=== PATIENT | female | born 1970 | race Caucasian/White ===

== ENCOUNTER 2019-12-15 09:48 | Outpatient (CLI) | payer OTHER, SELFPAY ==
--- NOTE | ~2019-12-15 | MM_ITS ---
EXAMINATION: MM screening [facility] BI w abida HISTORY: Screening mammogram TECHNIQUE: Craniocaudal and mediolateral oblique 3-D tomosynthesis images were obtained and synthetic 2-D images were generated. CAD analysis was submitted and interpreted. COMPARISON: , 10/16/2017, 08/20/2016 bilateral digital screening mammogram examinations BREAST PARENCHYMAL COMPOSITION: . FINDINGS: There is no evidence of suspicious mass, calcification, or architectural distortion to sugg est malignancy in either breast. There has been no suspicious interval change. IMPRESSION: 1. No mammographic evidence of malignancy. 2. Recommend routine screening mammography in one year. BI-RADS Category 1: Negative Reviewed, dictated and finalized at location A.
== END 2019-12-15 09:49 | disposition home or self-care (01) ==
LOC: ANHIMG 09:51
PROVIDERS: PCP Internal Medicine; Visit Provider Obstetrics & Gynecology
DX: Z12.31 Encounter for screening mammogram for malignant neoplasm of breast (principal)
CPT/HCPCS: 77063; 77067

== ENCOUNTER 2020-12-15 10:36 | Outpatient (CLI) | payer BC, SELFPAY ==
--- NOTE | ~2020-12-15 | MM_ITS ---
EXAMINATION: MM screening [facility] BI w abida HISTORY: Screening mammogram TECHNIQUE: Craniocaudal and mediolateral oblique 3-D tomosynthesis images were obtained and synthetic 2-D images were generated. CAD analysis was submitted and interpreted. COMPARISON: 12/15/2019, 10/21/2018, 10/16/2017 BREAST PARENCHYMAL COMPOSITION: The breasts are heterogeneously dense, which may obscure small masses . FINDINGS: There is no evidence of suspicious mass, calcification, or architectural distortion to sugg est malignancy in either breast. There has been no suspicious interval change. IMPRESSION: 1. No mammographic evidence of malignancy. 2. Recommend routine screening mammography in one year. BI-RADS Category 1: Negative Reviewed, dictated and finalized at location A.
== END 2020-12-15 10:37 | disposition home or self-care (01) ==
LOC: ANHIMG 10:39
PROVIDERS: PCP Internal Medicine; Visit Provider Obstetrics & Gynecology
DX: Z12.31 Encounter for screening mammogram for malignant neoplasm of breast (principal)
CPT/HCPCS: 77063; 77067

== ENCOUNTER 2021-12-17 14:15 | Outpatient (CLI) | payer BC, SELFPAY ==
--- NOTE | ~2021-12-17 | MM_ITS ---
EXAMINATION: MM screening [facility]io BI w abida HISTORY: Screening TECHNIQUE: Craniocaudal and mediolateral oblique 3-D tomosynthesis images were obtained and synthetic 2-D images were generated. CAD analysis was submitted and interpreted. COMPARISON: Comparison to multiple prior studies sequentially, with oldest reviewed study dated 07/26. BREAST PARENCHYMAL COMPOSITION: Breast composed of scattered areas of fibroglandular density FINDINGS: There is no evidence of suspicious mass, calcification, or architectural distortion to sugg est malignancy in either breast. There has been no suspicious interval change. IMPRESSION: 1. No mammographic evidence of malignancy. 2. Recommend routine screening mammography in one year. BI-RADS Category 1: Negative Reviewed, dictated and finalized at location A.
== END 2021-12-17 14:16 | disposition home or self-care (01) ==
LOC: ANHIMG 14:16
PROVIDERS: PCP Internal Medicine; Visit Provider Obstetrics & Gynecology
DX: Z12.31 Encounter for screening mammogram for malignant neoplasm of breast (principal)
CPT/HCPCS: 77063; 77067

== ENCOUNTER 2023-01-02 15:58 | Outpatient (CLI) | payer BC, SELFPAY ==
--- NOTE | ~2023-01-02 | MM_ITS ---
EXAMINATION: MM screening [facility] BI w abida HISTORY: Screening mammogram TECHNIQUE: Craniocaudal and mediolateral oblique 3-D tomosynthesis images were obtained and synthetic 2-D images were generated. CAD analysis was submitted and interpreted. COMPARISON: 12/17/2021, 12/15/2020, 12/15/2019 BREAST PARENCHYMAL COMPOSITION:The breasts are heterogeneously dense, which may obscure small masses. FINDINGS: No suspicious mass, calcification, or architectural distortion are identified in either rajinder ast to suggest malignancy. There has been no suspicious interval change. IMPRESSION: No mammographic evidence of malignancy. Recommend routine screening mammography in one year. BI-RADS Category 1: Negative Reviewed, dictated and finalized at location .
== END 2023-01-02 15:59 | disposition home or self-care (01) ==
LOC: ANHIMG 16:00
PROVIDERS: PCP Registered Nurse; Visit Provider Obstetrics & Gynecology
DX: Z12.31 Encounter for screening mammogram for malignant neoplasm of breast (principal)
CPT/HCPCS: 77063; 77067

== ENCOUNTER 2024-01-23 07:31 | Outpatient (CLI) | payer BC, SELFPAY ==
--- NOTE | ~2024-01-23 | MM_ITS ---
EXAMINATION: MM screening [facility] BI w abida HISTORY: Screening TECHNIQUE: Craniocaudal and mediolateral oblique 3-D tomosynthesis images were obtained and synthetic 2-D images were generated. CAD analysis was submitted and interpreted. COMPARISON: Comparison to multiple prior studies sequentially, with oldest reviewed study dated 10/16. BREAST PARENCHYMAL COMPOSITION: Not dense: There are scattered areas of fibroglandular density. FINDINGS: There is no evidence of suspicious mass, calcification, or architectural distortion to sugg est malignancy in either breast. There has been no suspicious interval change. IMPRESSION: 1. No mammographic evidence of malignancy. 2. Recommend routine screening mammography in one year. BI-RADS Category 1: Negative Reviewed, dictated and finalized at location B.
== END 2024-01-23 07:32 | disposition home or self-care (01) ==
LOC: ANHIMG 07:34
PROVIDERS: PCP Registered Nurse; Visit Provider Obstetrics & Gynecology
DX: Z12.31 Encounter for screening mammogram for malignant neoplasm of breast (principal)
CPT/HCPCS: 77063; 77067

== ENCOUNTER 2025-02-10 08:10 | Outpatient (CLI) | payer BC, SELFPAY ==
--- NOTE | ~2025-02-10 | MM_ITS ---
EXAMINATION: MM screening [facility] BI w abida HISTORY: Screening TECHNIQUE: Craniocaudal and mediolateral oblique 3-D tomosynthesis images were obtained and synthetic 2-D images were generated. CAD analysis was submitted and interpreted. COMPARISON: Comparison to multiple prior studies sequentially, with oldest reviewed study dated 10/21. BREAST PARENCHYMAL COMPOSITION: Not dense: There are scattered areas of fibroglandular density. FINDINGS: There is no evidence of suspicious mass, calcification, or architectural distortion to sugg est malignancy in either breast. There has been no suspicious interval change. IMPRESSION: 1. No mammographic evidence of malignancy. 2. Recommend routine screening mammography in one year. BI-RADS Category 1: Negative Reviewed, dictated and finalized at location A.
--- OUTSIDE RECORDS SUMMARY | 2025-02-10 08:16 | XMS_ITS | Referral Summary ---
Author Organization [facility] Address [address] [place] [address] Care Team Providers Care Arborist Climber Name Role Phone Jamie Reis MD Primary Care Provider [phone] Amrik Holbrook MD Unavailable [phone] Encounters Date Type Department Care Team Description 01/12/2025 Results Follow-Up [facility] Medical [facility] Obstetrical Gynecology [facility] [address] [place] [address] Daljit Santa MD Pap and High Risk HPV and Genotyping (Cytology Component) 01/04/2025 2:38 PM CDT - 01/04/2025 11:59 PM CDT Hospital Encounter [facility] Lab [facility] [place] [address] Well woman exam Discharge Disposition: Discharge to home or self care 01/04/2025 1:30 PM CDT Office Visit [facility] Obstetrical Gynecology [facility] [address] [place] [address] Daljit Santa MD Well woman exam (Primary Dx); Left lower quadrant pain; Menopausal symptoms; Encounter for screening mammogram for malignant neoplasm of breast from Last 3 Months Allergies Active Allergy Reactions Criticality Noted Date Comments Prednisone Stomach upset Low 09/23/2013 Stomach/GI Upset Medications DULoxetine DR (CYMBALTA) 60 mg capsule 04/04/2018 Active olmesartan (BENICAR) 20 mg tablet Take 1 tablet (20 mg total) by mouth daily 08/02/2021 Active Active Problems Problem Noted Date Diagnosed Date Neck pain 08/07/2017 Carpal tunnel syndrome 05/21/2016 Social History Tobacco Use Types Packs/Day Years Used Date Smoking Tobacco: Never Tobacco Cessation:Counseling Given: Not Answered Alcohol Use Standard Drinks/Week Comments Yes 0 (1 standard drink = 0.6 oz pur e alcohol) Comments No Sex and Gender Information Value Date Recorded Sex Assigned at Not on file 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 Gender Identity Female 06/10/2018 12:33 PM CDT Sexual Orientation Not on file Last Filed Vital Signs Vital Sign Reading Time Taken Comments Blood Pressure 118/72 12/08/2023 10:14 AM CDT Pulse - - Temperature - - Respiratory Rate - - Oxygen Saturation - - Inhaled Oxygen Concentration - - Weight 109.9 kg (242 lb 3.2 oz) 01/04/2025 1:33 PM CDT Height 162.6 cm (5' 4) 01/04/2025 1:33 PM CDT Body Mass Index 41.57 01/04/2025 1:33 PM CDT Plan of Treatment Not on file Procedures Procedure Name Priority Date/Time Associated Diagnosis Comments PAP AND HIGH RISK HPV, REFLEX TO GENOTYPING Routine 01/04/2025 2:02 PM CDT Well woman exam HIGH RISK HPV DNA DETECTION WITH GENOTYPING Routine 01/04/2025 2:02 PM CDT Well woman exam from Last 3 Months Results * High Risk HPV DNA Detection with Genotyping (Molecular component) (01/04/2025 2:02 PM CDT) HPV HR 16 Not Detected Not Detected [facility] Comment:Testing performed by : [facility], [address] [facility] [place]., [address] HPV HR 18 Not Detected Not Detected KIM NATARAJAN Comment:Testing performed by : [facility], [address] [place]., [address] HPV HR Non 16/18 Not Detected Not Detected [facility]ARAJ[facility] Comment: Interpretive Data Nucleic acid amplification for detection of high-risk Human Papilloma virus (HPV) is performed by the Rodriguez Mariluz 6800 HPV test. This assay specifically detects HPV-16 and HPV-18 genotypes. The following HPV genotypes are detected as high-risk HPV: HPV-31, 33, 35, ,39, 45, 51, 52, 56, 58, 59, 66, and 68. This assay has been approved by the [place] Food and Drug Administration for detection of HPV in cervical specimens collected by a physician using an endocervical brush/spatula or cervical broom and placed in the ThinPrep Pap Test PreservCyt collection containers. The performance characteristics of this test have been verified by the [facility] Molecular Infectious Disease laboratory. Correlate with separately reported cytology results, as applicable. Interpretive data last revised 23 Testing performed by: [facility], [address] [place]., [address] Endocervical 01/04/2025 2:02 PM CDT 01/06/2025 11:09 AM CDT Narrative [facility] - 01/06/2025 9:14 PM CDT Clinical history and diagnosis->screen Number of vials->1 Testing type->Screening Last menstrual period (date if known)->12/16/24 Daljit Santa MD LAB BODY FLUIDS AND STO OLS ORDERABLES Final Result [facility] [address] [facility] Department [place] [address] [facility] * Pap and High Risk HPV and Genotyping (Cytology Component) (01/04/2025 2:02 PM CDT) Thin prep (Pap test) 01/04/2025 2:02 PM CDT 01/05/2025 8:39 PM CDT Narrative [facility] - 01/12/2025 9:58 AM CDT EPIC results best viewed via link to PDF [facility] [place] [address] [place] [address] Note to Patients: This report may contain a detailed description of human tissue sent by a health care provider to the laboratory for pathologic evaluation. The content of this report is essential for diagnosis and may provide important critical findings. This information may be unfamiliar to patients to review without a medical professional present. It is advised that the patient review this report in the presence of a health care provider who can answer questions and explain the details. CYTOPATHOLOGY REPORT FINAL Patient Name: GLADIS SAMUEL Gender: F : 1970 (Age: 54) Address: [address] [place] [id number] [facility] #: [id number] Service: UNKNOWN Location: Patient Type: [facility] SPECIMEN Taken: 01/04/2025 Received: 01/05/2025 Accessioned: 01/06/2025 Reported: 01/12/2025 Physician(s): Daljit Santa M.D. FINAL INTERPRETATION SOURCE OF SPECIMEN Liquid based Thin Prep pap with HPV: STATEMENT OF ADEQUACY - Satisfactory for evaluation - Endocervical cells/transformation zone sample absent GENERAL CATEGORIZATION: - Negative for squamous intraepithelial lesion or malignancy Comments (Normal-Negative for High Risk HPV) HPV HR 16- Not detected HPV HR 18-Not detected HPV HR non 16/18- Not detected Interpretive Data Nucleic acid amplification for detection of high-risk Human Papilloma virus (HPV) is performed by the Rodriguez Mariluz 6800 HPV test. This assay specifically detects HPV- 16 and HPV-18 genotypes. The following HPV genotypes are detected as high-risk HPV: HPV-31, 33, 35, 39, 45, 51, 52, 56, 58, 59, 66, and 68. This assay has been approved by the [place] Food and Drug Administration for detection of HPV in cervical specimens collected by a physician using an endocervical brush/spatula or cervical broom and placed in the ThinPrep Pap Test PreservCyt collection containers. The performance characteristics of this test have been verified by the [facility] Molecular Infectious Disease laboratory. Correlate with reported cytology results, as applicable. Interpretive data last revised 23 swetha/01/12/2025 09:58 AIDAN Barron(ASCP) Report Electronically Reviewed and Signed Out By AIDAN Barron(ASCP) 01/12/2025 09:58:42 Cervicovaginal Cytology (Pap Test) Disclaimer: The Pap test is a screening test used to detect cervical cancer and its precursors; it is not a diagnostic procedure. False negative and false positive results do occur. Pap test results should be interpreted in the context of pertinent clinical information and biopsy results as indicated. [facility] Clinical Laboratory Improvement Amendments (CLIA) mandate that cytologic and histologic results be correlated for laboratory air quality manager & improvement standards. FOR ALL HIGH-GRADE CASES we request submission of follow-up histological material and/or reports that have not been previously provided so that we may fulfill said required standards. Gross Description A. Liquid based Thin Prep pap with HPV: Cervical/vaginal - Screening ThinPrep Clinical Diagnosis and History Last Menstrual Period: 12/16/24 The patient is a 54 year old female with screen. Report Images and scanned documents, if included only viewable in PDF version The performance characteristics of some immunohistochemical stains, in-situ hybridization and fluorescence in-situ hybridization tests and immunophenotyping by flow cytometry cited in this report (if any) were determined by the Surgical Pathology Department at [facility] as part of an ongoing quality compliance consultant program and in compliance with federally mandated regulations drawn from the Clinical Laboratory Improvement Act of 1988 (CLIA '88). Some of these tests rely on the use of analyte specific reagents and are subject to specific labeling requirements by the [place] Food and Drug Administration. Such diagnostic tests may only be performed in a facility that is certified by the Department of Health and Human Services as a high complexity laboratory under CLIA '88. The FDA has determined that such clearance or approval is not necessary. This test is used for clinical purposes. It should not be regarded as investigational or for research. Nevertheless, federal rules concerning the medical use of analyte specific reagents require that the following disclaimer be attached to the report: This test was developed and its performance characteristics determined by the Surgical Pathology Department of [facility]. It has not been cleared or approved by the U. S. Food and Drug Administration. Daljit Santa MD LAB CYTOLOGY ORDERABLES Final Result [facility] from Last 3 Months Insurance [facility] CHOICE [facility] HMO/PPO Address: [address] [address] [place] [address] CHOICE [place]F [place] Care Teams Arborist Climber Relationship Specialty Start Date End Date Jamie Reis MD [address] [place] [id number] PCP - General 07/22/17 Amrik Holbrook MD [address] [facility] [address] [place] [address] Surgeon Orthopedic Surgery 04/08/18
--- OUTSIDE RECORDS SUMMARY | 2025-02-10 08:16 | XMS_ITS | Encounter Summary ---
Author Organization [facility] Address [address] [place] [address] [place] [address] Care Team Providers Care Safety And Security Officer Name Role Phone Unavailable Primary Care Provider Unavailabl e Encounter Details Date Type Department Care Team (Late st Contact Info) Description 07/05/2024 Lab Requisition [facility] - DermPath Lab [address] [facility] [place] [phone] Veronica Hughes DO [address] [facility] [address] [place] [address] Social History Tobacco Use Types Packs/Day Years Used Date Smoking Tobacco: Never Assessed Comments Unknown Sex and Gender Information Value Date Recorded Sex Assigned at Not on file 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 Gender Identity Not on file Sexual Orientation Not on file documented as of this encounter Plan of Treatment Not on file documented as of this encounter Procedures Procedure Name Priority Date/Time Associated Diagnosis Comments DERMATOPATHOLOGY Routine 07/05/2024 2:45 PM SUPERVISOR SALVAGE documented in this encounter Results * DERMATOPATHOLOGY (07/05/2024 2:45 PM SUPERVISOR SALVAGE) Case Report Dermatopathology Report Case: [id number] Authorizing Provider: Veronica Hughes DO Collected: 07/05/2024 02:45 PM Ordering Location: [facility] - Received: 07/06/2024 02:29 PM DermPath Lab Pathologist: Yana Powers MD Specimen: Skin, mid back 4 3:07 PM [employer] DERMATOPATHOLOGY LABORATORY Final Diagnosis Specimen A. 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 The specimen consists of a shave biopsy measuring 7x6x1 mm. Jar 0. 4 3:07 PM [facility] DERMATOPATHOLOGY LABORATORY Microscopic Description Specimen A. SKIN, mid back: This is a compound nevus. There is a lentiginous proliferation of melanocytes between nevus nests of cells along the dermal-epidermal junction. There is underlying lamellar fibroplasia of the papillary dermis. The intradermal component is bland in appearance and matures with depth. (Compound Brian's Nevus) 4 3:07 PM [facility] DERMATOPATHOLOGY LABORATORY Disclaimer An external and internal positive and negative controls are appropriate for the histochemical, immunohistochemical and immunofluorescence stain(s) in this case (if any), except where stated explicitly. The performance characteristics of the stain(s) cited in this report were developed and its performance characteristic determined by the Dermatopathology Laboratory at [facility], directed by Dr. Mike Clarke. These tests need not be, and therefore are not, approved by the [place] Food and Drug Administration. The tests are used for clinical purposes. Billing Codes Specimen Charges Stain Charges 58451 1 4 3:07 PM [facility] DERMATOPATHOLOGY [facility]ORATORY Embedded Images 4 3:07 PM [facility] DERMATOPATHOLOGY LABORATORY Pathology/Cytolo gy TISSUE SPECIMEN FROM SKIN / Unknown 07/05/2024 2:45 PM SUPERVISOR SALVAGE 07/06/2024 2:29 PM SUPERVISOR SALVAGE us Veronica Hughes DO LAB - PATHOLOGY/CYTOLOGY ORDERABLES Final Result DERMATOPATHOLOGY LABORATORY [facility] - Department of Dermatology [address] [place] [address], [facility] [phone] documented in this encounter Visit Diagnoses Not on filedocumented in this encounter
--- OUTSIDE RECORDS SUMMARY | 2025-02-10 08:16 | XMS_ITS | Encounter Summary ---
Author Organization [facility] Address [address] [place] [address] Care Team Providers Care Chief Nurse Anesthetist Name Role Phone Jamie Reis MD Primary Care Provider [phone] Amrik Holbrook MD Unavailable [phone] Encounter Details Date Type Department Care Team (Late st Contact Info) Description 01/12/2025 Results Follow-Up [facility] Medical Group Obstetrical Gynecology [address] [facility] [address] [place] [phone] Daljit Santa MD [address] [place] [address] Pap and High Risk HPV and Genotyping (Cytology Component) Social History Tobacco Use Types Packs/Day Years Used Date Smoking Tobacco: Never Alcohol Use Standard Drinks/Week Comments Yes 0 (1 standard drink = 0.6 oz pur e alcohol) Comments No Sex and Gender Information Value Date Recorded Sex Assigned at Not on file 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 Your Pap smear is normal. documented in this encounter Plan of Treatment Not on file documented as of this encounter Visit Diagnoses Not on filedocumented in this encounter Care Teams Chief Nurse Anesthetist Relationship Specialty Start Date End Date Jamie Reis MD [address] [place] [address] PCP - General 07/22/17 Amrik Holbrook MD [address] [facility] [address] [place] [address] Surgeon Orthopedic Surgery 04/08/18 documented as of this encounter
--- OUTSIDE RECORDS SUMMARY | 2025-02-10 08:16 | XMS_ITS | Clinical Summary ---
Author Organization [facility] [employer] Address [address] [place] [address] [place] [address] Care Team Providers Care Saxophone Player Name Role Phone Unavailable Primary Care Provider Unavailabl e Source Comments [facility],non-owned Affiliates and Associated Physician Practices is amultiple site organization consisting of ambulatory clinics and hospital sitesin [place], [place], [place] and [place]. This disclosure is being madepursuant to the Care Everywhere program and may not contain all information available regarding this patient. 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 Gender Identity Not on file Sexual Orientation Not on file Plan of Treatment Health Maintenance Due Date Last Done Comments COLOGUARD (AGES 45-75) - COL ON CA SCREENING 1970 COLON MONITORING 1970 COLONOSCOPY - COLON CA SCREENING 1969 CT COLONOGRAPHY - COLON CA SCREENING 1970 Colorectal Cancer Screening 1970 FIT - COLON CA SCREENING 1970 FLEX SIG - COLON CA SCREENING 1970 LIPID TESTING 1970 MAMMOGRAM 1970 HIV SCREENING 1984 HEPATITIS C SCREENING 03/21/1987 DTAP/TDAP/TD VACCINES (1 - Tdap) 1988 HEPATITIS B VACCINE (1 of 3 - 19+ 3-dose series) 1988 PAP SMEAR 1990 PNEUMOCOCCAL VACCINE 50+ (1 of 1 - PCV) 2019 ZOSTER VACCINE (1 of 2) 2019 COVID-19 VACCINE ( - 2023-2 5 season) 2024 DEPRESSION SCREENING 08/25/2024 INFLUENZA VACCINE (Season Ended) 2025 HIB VACCINE Aged Out No longer eligi ble based on patient's age to complete this topic HPV VACCINE Aged Out No longer eligi ble based on patient's age to complete this topic MENINGOCOCCAL (Group B) VACC INE SHARED DECISION-MAKING Aged Out No longer eligibl e based on patient's age to complete this topic MENINGOCOCCAL GROUPS A/C/Y/W VACCINE Aged Out No longer eligible b ased on patient's age to complete this topic Insurance
--- OUTSIDE RECORDS SUMMARY | 2025-02-10 08:16 | XMS_ITS | Clinical Summary ---
Author Organization [facility] Address [address] [place] [address] Care Team Providers Care Web Marketing Coordinator Name Role Phone Jamie Reis MD Primary Care Provider [phone] Amrik Holbrook MD Unavailable [phone] Allergies Active Allergy Reactions Criticality Noted Date Comments Prednisone Stomach upset Low 09/23/2013 Stomach/GI Upset Medications DULoxetine DR (CYMBALTA) 60 mg capsule 04/04/2018 Active olmesartan (BENICAR) 20 mg tablet Take 1 tablet (20 mg total) by mouth daily 08/02/2021 Active Active Problems Problem Noted Date Diagnosed Date Neck pain 08/07/2017 Carpal tunnel syndrome 05/21/2016 Encounters Date Type Department Care Team Description 01/12/2025 Results Follow-Up [facility] Obstetrical Gynecology [address] [place] [address] [place] [phone] Daljit Santa MD Pap and High Risk HPV and Genotyping (Cytology Component) 01/04/2025 2:38 PM CDT - 01/04/2025 11:59 PM CDT Hospital Encounter [facility] [place] [address] Well woman exam Discharge Disposition: Discharge to home or self care 01/04/2025 1:30 PM CDT Office Visit [facility] Obstetrical Gynecology [address] [place] [address] [address] [place] [phone] Daljit Santa MD Well woman exam (Primary Dx); Left lower quadrant pain; Menopausal symptoms; Encounter for screening mammogram for malignant neoplasm of breast from Last 3 Months Surgical History Surgery Date Site/Laterality Comments BILATERAL TEMPOROMANDIBULAR JOINT ARTHROPLASTY SECTION CARPAL TUNNEL RELEASE Right SINUS SURGERY Medical History Medical History Date Comments Anxiety and depression Acid reflux Fibromyalgia Hypertension Family History Medical History Relation Name Comments Cancer Brother lisbeth Cancer Father dad Hypertension Father dad Prostate cancer Father dad Diabetes Maternal Grandmother Stroke Maternal Grandmother Breast cancer Neg Hx Ovarian cancer Neg Hx Relation Name Status Comments Brother lisbeth Father dad Maternal Grandmother Social History Tobacco Use Types Packs/Day Years Used Date Smoking Tobacco: Never Tobacco Cessation:Counseling Given: Not Answered Alcohol Use Standard Drinks/Week Comments Yes 0 (1 standard drink = 0.6 oz pur e alcohol) Comments No Sex and Gender Information Value Date Recorded Sex Assigned at Not on file 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 Gender Identity Female 06/10/2018 12:33 PM CDT Sexual Orientation Not on file Obstetrics History Para Term AB IAB SAB Ectopic Multiple Livin g Live Births 1 1 Date Outcome GA Total Labor Labor/2nd/3rd Weight Sex Type Anes PTL Delaney A1 A5 Name Clin Para Comments 08/18 LTR 12.1% - 12/2022 Last Filed Vital Signs Vital Sign Reading [...] 01/04/2025 1:33 PM CDT Plan of Treatment Health Maintenance Due Date Last Done Comments Breast Cancer Screening-Mammogram 1970 Colon Cancer Screening-Colonoscopy 1970 Depression Screening 1970 Hepatitis C Screening 1970 Hepatitis B Screening 1987 Zoster Vaccine (1 of 2) 2019 Covid-19 Vaccine ( season) 2024 08/13/2021, 02/10/2021, 01/13/2021 Influenza Vaccine (Season Ended) 2025 Cervical Cancer Screening 01/04/20262024, 01/04/2025, 10/15/2021 Regular Well Visit/Exam 18-64 01/04/2026 01/04/2025, 12/08/2023, 11/20/2022, Additional history exists DTaP/Tdap/Td Vaccine (2 - Td or Tdap) 12/09/2033 12/10/2023 Pneumococcal vaccine <65 Aged Out No longer eligible based on patient's age to complete this topic Procedures Procedure Name Priority Date/Time Associated Diagnosis [...] HPV HR 16 Not Detected Not Detected [facility] Comment:Testing performed by : [facility], [address] [place]., [address] HPV HR 18 Not Detected Not Detected [facility] Comment:Testing performed by : [facility], [address] [place]., [address] HPV HR Non 16/18 Not Detected Not Detected [facility] Comment: Interpretive Data Nucleic acid amplification for [...] this test have been verified by the [facility] Molecular Infectious Disease laboratory. Correlate with separately reported cytology results, as applicable. Interpretive data last revised 23 Testing performed by: [facility], [address] [facility], [place]., [address] Endocervical 01/04/2025 2:02 PM CDT 01/06/2025 11:09 AM CDT Narrative [facility] - 01/06/2025 9:14 PM CDT Clinical history and diagnosis->screen Number of vials->1 Testing type->Screening Last menstrual period (date if known)->12/16/24 Daljit Santa MD LAB BODY FLUIDS AND STO OLS ORDERABLES Final Result [facility] [address] [facility] Department [place] [address] [facility] * Pap and High Risk HPV and Genotyping (Cytology Component) (01/04/2025 2:02 PM CDT) Thin prep (Pap test) 01/04/2025 2:02 PM CDT 01/05/2025 8:39 PM CDT Narrative PATHOLOGY [facility] - 01/12/2025 9:58 AM CDT EPIC results best viewed via link to PDF [facility] [place] [address] Note to Patients: This report may contain [...] Gender: F : 1970 (Age: 54) Address: [address] [place] [address] [facility] #: [id number] Service: UNKNOWN Location: Patient Type: [facility] SPECIMEN Taken: 01/04/2025 Received: 01/05/2025 Accessioned: 01/06/2025 Reported: 01/12/2025 Physician(s): Daljit aSnta M.D. FINAL INTERPRETATION SOURCE OF SPECIMEN Liquid [...] this test have been verified by the [facility] Molecular Infectious Disease laboratory. Correlate with reported [...] clinical information and biopsy results as indicated. [facility] Clinical Laboratory Improvement Amendments (CLIA) mandate that cytologic and histologic results be correlated for laboratory quality assurance analyst & improvement standards. FOR ALL HIGH-GRADE CASES [...] determined by the Surgical Pathology Department at [facility] as part of an ongoing air quality chemist program and in compliance with federally mandated [...] determined by the Surgical Pathology Department of [facility]. It has not been cleared or approved by the U. S. Food and Drug Administration. Daljit Santa MD LAB CYTOLOGY ORDERABLES Final Result PATHOLOGY [facility] from Last 3 Months Insurance [facility] CHOICE [facility] HMO/PPO Address: [address] [address] [place] [address] [place] [employer] Care Teams Web Marketing Coordinator Relationship Specialty Start Date End Date Jamie Reis MD [address] [place] [id number] PCP - General 07/22/17 Amrik Holbrook MD [address] [facility] [place] [address] Surgeon Orthopedic Surgery 04/08/18
--- OUTSIDE RECORDS SUMMARY | 2025-02-10 08:17 | XMS_ITS | Continuity of Care Document ---
Author Organization [facility] Address [address] [place] [address] Phone Care Team Providers Care Visitor Services Assistant Name Role Phone Mclaughlin OD, Luís Unavailable Unavailable Advance Directives Directive Yes / No Effective Date File Name No Information Encounters Encounter Description Practice Location Reason(s) For Visit Diagnoses Date Provider Providers Copied on Encounter [facility], [address] [place], [place], [id number], [place] tel:[phone] [facility] No Information Oct-0 3-200 6 Mclaughlin OD Luís. [address] , [address], [place], [address], [place]. tel:[phone] Family History Family Member Type Diagnosis Age At Onset No Information Payers Payer name Insurance type Covered alliance party ID Authoriza tiulisses(s) [employer] Plan [id number] Social History Type Description Quantity Date Captured Comments Sex Female Smoking Status No Information Chief Complaint And Reason For Visit No Information Reason For Referral Reason For Referral No Information History Of Present Illness Encounter Date Complaint History Of Prese nt Illness No Information Functional Status Date Functional Assessmen t No Information Instructions Date Instruction Additional Infor mation No Information Assessments Type Assessment Date No Information Patient Care Teams Name Effective Dates (start - stop) Status Members No Information
== END 2025-02-10 08:11 | disposition home or self-care (01) ==
LOC: ANHIMG 08:12
PROVIDERS: PCP Registered Nurse; Visit Provider Obstetrics & Gynecology
DX: Z12.31 Encounter for screening mammogram for malignant neoplasm of breast (principal)
CPT/HCPCS: 77063; 77067